=== PATIENT | female | born 1970 | race Caucasian/White ===

== ENCOUNTER 2021-12-31 18:45 | Emergency (ER) | payer BC ==
[2021-12-31 19:33] LABS: HEMOGLOBIN 13.6 gm/dl (12.3-15.3); RED BLOOD COUNT 4.69 M/UL (4.00-5.10); WHITE BLOOD COUNT 8.6 K/UL (4.5-11.0)
[2021-12-31 20:03] LABS: BUN/CREATININE RATIO 12 (0-10)
== END 2022-01-01 01:10 | disposition home or self-care (01) ==
LOC: ER1 18:45
PROVIDERS: Student in an Organized Health Care Education/Training Program
DX: R00.0 Tachycardia, unspecified (principal); R51.9 Headache, unspecified; E87.6 Hypokalemia; I48.91 Unspecified atrial fibrillation; Z91.040 Latex allergy status; Z79.899 Other long term (current) drug therapy; Z88.1 Allergy status to other antibiotic agents
CPT/HCPCS: 71045; 80053; 82550; 82553; 84439; 84443; 84484; 85025; 93005; 99285